=== PATIENT | male | born 1995 | race Caucasian/White ===

== ENCOUNTER 2024-09-24 11:06 | Outpatient (CLI) | payer OTHER, SELFPAY ==
--- OUTSIDE RECORDS SUMMARY | 2024-09-24 12:54 | XMS_ITS ---
Author Organization [facility] Address [address] [place] [address] Care Team Providers Care Architectural Project Manager Name Role Phone Vanesa Vasquez Primary Care Provider REASON FOR VISIT therapy Encounters Encounter Location Date Provider Diagnosis [address] [address] 09/10/2024 Vanesa Vasquez Major depressive disorder, recurrent, unspecified F33.9 Assessments Encounter Date Diagnosis (ICD Code) Assessment Notes Treatment Notes Treatment Clinical Notes Section Notes 09/10/2024 Major depressive disorder, recurrent, unspecified (ICD-10 - F33.9) Plan Of Treatment Next Appt Details Follow Up: 4 Weeks, Reason: therapy Provider Name:Vanesakeshia Marshallgiberny irizarry, 10/08/2024 10:30:00 AM, [address] [facility], [place], [address], Progress Notes * Dimitris MARCANODOB: 4 (28 yo M)Acc No.[id number]:09/10/2024 Patient: Dimitris THAKKAR Provider: Alona Vasquez LCSW :1995 A ge:28 Y S ex:Male Date:09/10/2024 Address:[address] [place], [place] Subjective: * Chief Complaints: * T herapy * HPI: B ehavioral Health Treatment: Patient is seeking services. C linician met with ct for session (utilizing precautions (telehealth)) - providing individual therapy. Utilized CBT approach: active listening, validation - along with facilitating feedback & introspection skills ct is working on. Acknowledged insights with patterns & interpersonal skills, re-framed, along with acknowledging growth (working on changes in behaviors/responses with factors in relationship & self). Ct reflected on patterns of thoughts/feelings, focusing on healthier changes he can adjust/made in responses to continue to focus on his growth (interpersonal, relationship, and self). Ct acknowledged areas that could help (setting healthy boundaries with media), barriers (need to remain informed), and supported middle ground areas. S uicidal Assessment: [place] Screening H ave you wished you were or wished you could go to sleep and not wake up? N o H ave you actually had any thoughts of killing yourself? N o H ave you ever done anything, started to do anything, or prepared to do anything to end your life? N o * Medical History: * Medications: Objective: * Examination: G eneral Examination: C robert presented through telehealth oriented, engaged in session. He reflected on factors in his relationships - old/previous pattern of his (he engaged in activities meant to help him, but increased his stress) with changes (cutting out activities that increase stress). Ct acknowledged pieces/factors of healthy insight & changes he'd like to implement as he moves forward (plan: to identify activities that cause him increased anxiety, cutting them out, and replacing with activities that bring him a sense of calm and productiveness). Assessment: * Assessment: 1. M virgilioor depressive disorder, recurrent, unspecified - F33.9 [place] V:Pt will continue medi cations as prescribed and will continue therapy to develop goals and manage symptoms. Plan: * Treatment: * Procedure Codes: 9 0832 PSYTX PT&/FAMILY 30 MINUTES, Modifiers: AJ * Follow Up: 4 Weeks (Reason: therapy) * Care Plan Details* * HOSE CUTTER Sign off status: Completed true * Provider: Alona Vasquez LCSW Date: 0 09/10/2024 Generated for Elham wharton/Vidhya/Veronica on: 0 09/24/2024 12:54 PM HAND HOSE CUTTER History and Physical Notes * HPI (History of Present Illness) Category Sub-Category Detail Notes Category Not es Suicidal Assessment [place] Screening Have you wished you were or wished you could go to sleep and not wake up?: No Have you actually had any thoughts of ki lling yourself?: No Have you ever done anything, started to do anything, or prepared to do anything to end your life?: No Strengths Examination Category Sub-Category Detail Notes Category Not es General Examination Ct prese nted through telehealth oriented, engaged in session. He reflected on factors in his relationships - old/previous pattern of his (he engaged in activities meant to help him, but increased his stress) with changes (cutting out activities that increase stress). Ct acknowledged pieces/factors of healthy insight & changes he'd like to implement as he moves forward (plan: to identify activities that cause him increased anxiety, cutting them out, and replacing with activities that bring him a sense of calm and productiveness).
--- OUTSIDE RECORDS SUMMARY | 2024-09-24 12:54 | XMS_ITS ---
Author Organization [facility] Address [address] [place] [address] Care Team Providers Care Criminal Profiler Name Role Phone Vanesa Vasquez Primary Care Provider REASON FOR VISIT therapy Encounters Encounter Location Date Provider Diagnosis [address] [address] 08/27/2024 Vanesa Vasquez Major depressive disorder, recurrent, unspecified F33.9 Assessments Encounter Date Diagnosis (ICD Code) Assessment Notes Treatment Notes Treatment Clinical Notes Section Notes 08/27/2024 Major depressive disorder, recurrent, unspecified (ICD-10 - F33.9) Plan Of Treatment Next Appt Details Follow Up: 2 Weeks, Reason: therapy Provider Name:Vanesakeshia Marshallgiberny irizarry, 10/08/2024 10:30:00 AM, [address] [facility], [place], [address], Progress Notes * Dimitris MARCANODOB: 4 (28 yo M)Acc No.[id number]:08/27/2024 Patient: Dimitris THAKKAR Provider: Alona Vasquez LCSW :1995 A ge:28 Y S ex:Male Date:08/27/2024 Address:[address] , [place], [place] Subjective: * Chief Complaints: * T [...] self). Ct acknowledged areas that could help (engaging in healthy relationships and discussing burnout with supervisors), barriers (some feelings of anxiety and temptation to continue to consume news), and supported middle ground areas. S uicidal Assessment: [place] Screening H ave you wished you were [...] Objective: * Examination: G eneral Examination: C t presented through telehealth oriented, engaged in session. He reflected on factors in his relationships - old/previous pattern of his (he engaged in unhealthy activities, feeling that he has become consumed) with changes (works towards creating activitiese that allow for rest). Ct acknowledged pieces/factors of healthy insight & changes he'd like to implement as he moves forward (plan: to work towards limiting things in his life that cause him feelings of anxiety and harm, replacing those with healthy activities that allow him to truly rest and recover). Assessment: * Assessment: 1. M lou depressive disorder, recurrent, unspecified - F33.9 [place] V:Pt will continue medi cations as prescribed and will continue therapy to develop goals and manage symptoms. Plan: * Treatment: * Procedure Codes: 9 0832 PSYTX PT&/FAMILY 30 MINUTES, Modifiers: AJ * Follow Up: 2 Weeks (Reason: therapy) * Care Plan Details* * STRAIGHTENER Sign off status: Completed true * Provider: Alona Vasquez LCSW Date: 08/27/2024 Generated for Elham wharton/Vidhya/eTransmitting on: 0 09/24/2024 12:53 PM SAW STRAIGHTENER History and Physical Notes * HPI (History of Present Illness) Category Sub-Category Detail Notes Category Not es Suicidal Assessment [place] Screening Have you wished you were or [...] old/previous pattern of his (he engaged in unhealthy activities, feeling that he has become consumed) with changes (works towards creating activitiese that allow for rest). Ct acknowledged pieces/factors of healthy insight & changes he'd like to implement as he moves forward (plan: to work towards limiting things in his life that cause him feelings of anxiety and harm, replacing those with healthy activities that allow him to truly rest and recover).
--- OUTSIDE RECORDS SUMMARY | 2024-09-24 12:54 | XMS_ITS ---
Author Organization [facility] Address [address] [place] [address] Care Team Providers Care Protection Specialist Name Role Phone Vanesa Vasquez Primary Care Provider REASON FOR VISIT therapy Encounters Encounter Location Date Provider Diagnosis [address] [place] [address] 08/22/2024 Vanesa Vasquez Plan Of Treatment Next Appt Details Provider Name:Vanesa irizarry, 10/08/2024 10:30:00 AM, [address] [place] [address], [place], [address], Progress Notes * Dimitris MARCANODOB: 4 (29 yo M)Acc No.[id number]:08/22/2024 UNLOCKED PROGRESS NOTE Patient: Dimitris THAKKAR Provider: Alona Vasquez LCSW :1995 A ge:28 Y S ex:Male Date:08/22/2024 Address:[address] [place], [place] [id number] Subjective: * Chief Complaints: * 1 . Therapy. * Medical History: Objective: Assessment: Plan: * Treatment: * Care Plan Details* * Electronic signature of Dre Vasquez LCSW, [id number] on 09/24/2024 at 12:53 PM BUILDING REPAIR MAINTENANCE SUPERVISOR Sign off status: Pending * Provider: Alona Vasquez LCSW Date: 0 08/22/2024 Generated for Elham wharton/Vidhya/Cainitting on: 0 09/24/2024 12:53 PM BUILDING REPAIR MAINTENANCE SUPERVISOR
--- OUTSIDE RECORDS SUMMARY | 2024-09-24 12:54 | XMS_ITS | Patient Health Record ---
Author Organization [facility] Address [address] [place] [address] Care Team Providers Care Carpenter Prototype Name Role Phone Vanesa Vasquez Primary Care Provider [phone] Reason For Referral No Information Social History Tobacco Use: Social History Observation Description Date Details (start date - stop date) Never Smoker NA - NA Tobacco Control (Standard) Question Answer Notes Tobacco use: Nonsmoker Additional Findings: Tobacco non-user Cu rrent nonsmoker, but past smoking history unknown Problems Problem Type SNOMED Code ICD Code Onset Dates Problem Status W/U Status Risk Notes Problem Tobacco user (648212441) Nicotine dependence, unspecified, uncomplicated (F17.200) Active confirmed Problem Recurrent major depression (91379090) Major depressive disorder, recurrent, unspecified (F33.9) Active confirmed Encounters Encounter Location Date Provider Diagnosis [address] [address] 10/06/2023 Vanesa Sanftleben Major depressive disorder, recurrent, unspecified F33.[address] [address] 10/17/2023 Vanesa Sanftleben Major depressive disorder, recurrent, unspecified F33.[address] [address] 10/31/2023 Vanesa Sanftleben Major depressive disorder, recurrent, unspecified F33.[address] [address] 11/21/2023 Vanesa Sanftleben Major depressive disorder, recurrent, unspecified F33.[address] [place] [address] 12/12/2023 Vanesa Sanftleben Major depressive disorder, recurrent, unspecified F33.[address] [place] [address] 12/28/2023 Vanesa Sanftleben Major depressive disorder, recurrent, unspecified F33.[address] [place] [address] 02/08/2024 Vanesa Sanftleben Major depressive disorder, recurrent, unspecified F33.[address] [place] [address] 03/07/2024 Vanesa Sanftleben Major depressive disorder, recurrent, unspecified F33.[address] [place] [address] 03/21/2024 Vanesa Sanftleben Major depressive disorder, recurrent, unspecified F33.[address] [place] [address] 04/04/2024 Vanesa Sanftleben Major depressive disorder, recurrent, unspecified F33.[address] [place] [address] 05/09/2024 Vanesa Sanftleben Major depressive disorder, recurrent, unspecified F33.[address] [place] [address] 06/06/2024 Vanesa Sanftleben Major depressive disorder, recurrent, unspecified F33.[address] [place] [address] 06/27/2024 Vanesa Sanftleben Major depressive disorder, recurrent, unspecified F33.[address] [place] [address] 07/23/2024 Vanesa Sanftleben Major depressive disorder, recurrent, unspecified F33.[address] [place] [address] [place] [address] 08/27/2024 Vanesa Sanftleberonald Major depressive disorder, recurrent, unspecified F33.[address] [place] [address] 09/10/2024 Vanesa Sanftleben Major depressive disorder, recurrent, unspecified F33.9 Assessments Encounter Date Diagnosis (ICD Code) Assessment Notes Treatment Notes Treatment Clinical Notes Section Notes 10/31/2023 Major depressive disorder, recurrent, unspecified (ICD-10 - F33.9) Pt will continue medications as prescribed and will continue therapy to develop goals and manage symptoms. 11/21/2023 Major depressive disorder, recurrent, unspecified (ICD-10 - F33.9) Pt will continue medications as prescribed and will continue therapy to develop goals and manage symptoms. 02/08/2024 Major depressive disorder, recurrent, unspecified (ICD-10 - F33.9) Pt will continue medications as prescribed and will continue therapy to develop goals and manage symptoms. 04/04/2024 Major depressive disorder, recurrent, unspecified (ICD-10 - F33.9) Pt will continue medications as prescribed and will continue therapy to develop goals and manage symptoms. 07/23/2024 Major depressive disorder, recurrent, unspecified (ICD-10 - F33.9) 08/27/2024 Major depressive disorder, recurrent, unspecified (ICD-10 - F33.9) 09/10/2024 Major depressive disorder, recurrent, unspecified (ICD-10 - F33.9) 06/27/2024 Major depressive disorder, recurrent, unspecified (ICD-10 - F33.9) 06/06/2024 Major depressive disorder, recurrent, unspecified (ICD-10 - F33.9) 05/09/2024 Major depressive disorder, recurrent, unspecified (ICD-10 - F33.9) Pt will continue medications as prescribed and will continue therapy to develop goals and manage symptoms. 03/21/2024 Major depressive disorder, recurrent, unspecified (ICD-10 - F33.9) Pt will continue medications as prescribed and will continue therapy to develop goals and manage symptoms. 03/07/2024 Major depressive disorder, recurrent, unspecified (ICD-10 - F33.9) Pt will continue medications as prescribed and will continue therapy to develop goals and manage symptoms. 12/28/2023 Major depressive disorder, recurrent, unspecified (ICD-10 - F33.9) Pt will continue medications as prescribed and will continue therapy to develop goals and manage symptmos, 12/12/2023 Major depressive disorder, recurrent, unspecified (ICD-10 - F33.9) pt will continue medications as prescribed and will continue therapy to develop goals and manage symptoms. 10/17/2023 Major depressive disorder, recurrent, unspecified (ICD-10 - F33.9) Pt will continue medications as prescribed and will continue therapy to develop goals and manage symptoms 10/06/2023 Major depressive disorder, recurrent, unspecified (ICD-10 - F33.9) Pt will continue medications as prescribed and will continue therapy to develop goals and manage symptoms. Plan Of Treatment Next Appt Details Provider Name:Vanesa Brittany irizarry, 10/08/2024 10:30:00 AM, [address] [facility] , [place], [address], Insurance Providers Payer Name Payer Address Payer Phone Subscriber Number Group Number Insured Name Patient Relationship to Insured Coverage Start Date Coverage End Date [facility] [employer] [address] [place], [place] [phone] [id number] Dimitris Aranda Self - patient is the insured 3
== END 2024-09-24 11:07 | disposition home or self-care (01) ==
PROVIDERS: PCP Nurse Practitioner Family; Visit Provider Nurse Practitioner Family
DX: R00.2 Palpitations (principal)
CPT/HCPCS: 93242

== ENCOUNTER 2024-09-24 12:09 | Emergency (ER) | payer OTHER, SELFPAY ==
--- NOTE | 2024-09-24 12:17 | ED_ITS ---
HPI - URI/Sore Throat General Chief Complaint: Upper Respiratory Infection Stated Complaint: Sore Throat Source: patient, RN notes reviewed and old records reviewed Mode of arrival: ambulatory Limitations: no limitations History of Present Illness HPI Narrative: Patient presents with complaints of sore throat for 2 days. He denies any fever, chills, sweats. He denies any headache or upset stomach. He has been taking [id number] medications for his symptoms. No drooling or stridor, he is easily able to manage own secretions. He is not in any distress Related Data Home Medications ?Medication ?Instructions ?Recorded ?Confirmed ?Last Taken ?Type escitalopram oxalate 20 mg tablet 20 mg PO DAILY 12/27/23 09/07/24 Unknown History hydroxyzine HCl 10 mg tablet 10 mg PO ONCE PRN 12/27/23 09/07/24 Unknown History melatonin 5 mg capsule 6 mg PO 12/27/23 09/07/24 Unknown History Allergies Allergy/AdvReac Type Severity Reaction Status Date / Time Dust Allergy Mild Unknown Uncoded 09/24/24 12:16 Mold Allergy Mild Unknown Uncoded 09/24/24 12:16 pollen Allergy Mild unknown Uncoded 09/24/24 12:16 Review of Systems Review of Systems: All systems reviewed & are unremarkable except as noted in HPI and below Constitutional: Constitutional: Reports no additional constitutional complaints ENT: Reports system reviewed and no additional complaints, except as documented and Reports sore throat Cardiovascular: Cardiovascular: Reports no additional cardiovascular complaints Respiratory: Respiratory: Reports no additional respiratory complaints Gastrointestinal: Gastrointestinal: Reports no additional gastrointestinal complaints [facility] Past Medical History Medical History Anxiety Allergies Family History Family History Father Hypertension Anxiety Mother Hypertension Depression Anxiety Heart problem Sibling Anxiety Depression Grandparent Hypertension Heart problem Grandparent Hypertension Heart problem Social History Social History Smoking status: Never smoker Alcohol intake: never Substance use: never Occupation/Education: occupation Additional occupation/education comments: 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 There is no relevant family history pertinent to the patient complaint. Exam Const: General: cooperative, no acute distress, alert and awake Orientation/consciousness: oriented to person, oriented to place and oriented to time HENMT: Head: normal to inspection Ears: TM's normal bilaterally Mouth: Yes moist mucous membranes Throat: abnormal tonsil bilateral erythema and hypertrophy 1+ and posterior oropharynx abnormal erythema Resp: Effort & Inspection: normal respiratory effort and able to speak in complete sentences Auscultation: clear to auscultation bilaterally, no crackles, no rales, no rhonchi and no wheezes Cardio: Palpation: normal PMI Rate: regular rate Rhythm: regular rhythm Heart sounds: S1 normal heart sound present and S2 normal heart sound present Neuro: General: oriented to person, oriented to place and oriented to time Cranial nerves: Yes CN's II-XII intact bilaterally Psych: Appearance: grossly normal Thought process: Normal thought process present Insight: Good insight present (Psych) Judgement: Good judgement present (Psych) Course Course Level of Care: Express Care Visit Vital Signs Vital signs: Reviewed MDM - URI/Sore Throat MDM Narrative Medical decision making narrative: Patient nontoxic appearing, reassuring physical exam. Positive strep. Stable for discharge home on p.o. antibiotic therapy. Discharge instructions reviewed with patient, as well as provided in writing per nursing staff. The instructions also include specific and strict return/GO TO THE ER as well as f/u information. All questions have been answered, and the patient deny any further questions with discharge and discharge plan. Some parts of this dictation were generated by voice recognition software and may contain typographical and/or grammatical inaccuracies. Differential Diagnosis Differential diagnosis: Likely upper respiratory infection, otitis media, viral infection and pharyngitis Medical Records Attestation: I reviewed the patient's medical records. Lab Data Attestation: I reviewed the patient's lab results. Discharge Plan Discharge Clinical Impression: Pharyngitis Qualifiers: Pharyngitis/tonsillitis etiology: streptococcus Qualified Code(s): J02.0 - Streptococcal pharyngitis Patient Disposition: Home, Self-Care Condition: Stable Instructions: Antibiotic Form, Pharyngitis (ED) Additional Instructions: Take medications as prescribed. Follow with primary care provider. Emergency department for new or worse symptoms Patient Language: Turkish Prescriptions: New penicillin V potassium 500 mg tablet 500 mg PO Q12H 10 Days Qty: 20 0RF No Action melatonin 5 mg capsule 6 mg PO hydroxyzine HCl 10 mg tablet 10 mg PO ONCE PRN escitalopram oxalate 20 mg tablet 20 mg PO DAILY Follow-up/Referrals: Regina [place], [place] [Primary Care Provider] - 2 Weeks Time of Disposition: 12:42
[2024-09-24 12:30] VITALS: BP 134/77; PULSE 70; RESP 20; TEMP 37.3; O2SAT 98
[2024-09-24 12:37] LABS: EDSTREPNEGPOS1 Positive (Negative)
[2024-09-24 12:40] VITALS: PULSE 70; RESP 20; O2SAT 98
== END 2024-09-24 12:50 | disposition home or self-care (01) ==
PROVIDERS: Emergency Provider Nurse Practitioner Family; PCP Nurse Practitioner Family
DX: J02.0 Streptococcal pharyngitis (principal); F41.9 Anxiety disorder, unspecified
CPT/HCPCS: 87880; 99213; G0463